=== PATIENT | female | born 1980 | race Caucasian/White ===

== ENCOUNTER 2021-10-25 08:39 | Outpatient (CLI) | payer OTHER, SELFPAY ==
--- NOTE | 2021-10-25 08:52 | MM_ITS ---
WS: [id number] BILATERAL DIGITAL SCREENING MAMMOGRAPHY WITH CAD CLINICAL INFORMATION: SCREENING HISTORY: Screening mammogram. No current complaints. COMPARISON: None. TECHNIQUE: Bilateral CC and MLO views. FINDINGS: Scattered fibroglandular densities bilaterally. No suspicious focal mass, asymmetry, calcifications, or architectural distortion. No evidence of malignancy. MM/[id number] IMPRESSION: BI-RADS: 1-Negative FOLLOW UP: 1 Year Follow-up Recommend return to annual screening mammography.
== END 2021-10-25 08:40 | disposition home or self-care (01) ==
LOC: RADSHAW 08:47
PROVIDERS: PCP Family Medicine; Visit Provider Family Medicine
DX: Z12.31 Encounter for screening mammogram for malignant neoplasm of breast (principal)
CPT/HCPCS: 77067

== ENCOUNTER 2022-12-07 09:47 | Outpatient (CLI) | payer OTHER, SELFPAY ==
--- NOTE | 2022-12-07 09:57 | MM_ITS ---
WS: [id number] SCREENING DIGITAL BREAST TOMOSYNTHESIS MAMMOGRAM WITH CAD HISTORY: SCREENING COMPARISON: 10/25/2021 Bilateral CC and MLO with tomosynthesis and synthetic mammography submitted. Computer aided detection analyzed. Breast composition: The breasts are heterogeneously dense, which may obscure small masses. New area o f increasing asymmetry in the posterior LEFT breast at 12:00. This will need to be further evaluated. The remaining breasts are negative. No distortion or calcification. MM/[place] [id number] IMPRESSION: BI-RADS: 0-Incomplete: Need additional imaging evaluation FOLLOW UP: Need Additional Imaging LEFT breast: Spot compression views (CC and MLO). True ML. Ultrasound to follow if abnormality persists.
== END 2022-12-07 09:48 | disposition home or self-care (01) ==
PROVIDERS: PCP Family Medicine; Visit Provider Family Medicine
DX: Z12.31 Encounter for screening mammogram for malignant neoplasm of breast (principal)
CPT/HCPCS: 77063; 77067

== ENCOUNTER 2023-01-03 12:39 | Outpatient (CLI) | payer OTHER, SELFPAY ==
--- NOTE | 2023-01-03 13:17 | MM_ITS ---
WS: [id number] ADDITIONAL VIEWS LEFT MAMMOGRAM with tomosynthesis. LEFT BREAST ULTRASOUND HISTORY: ABNORMAL MAMMO COMPARISON: 12/07/2022, 10/25/2021 LEFT MAMMOGRAM: Spot compression views and true ML with tomosynthesis and sympathetic mammography. Ill-defined asymmetries in the posterior LEFT breast near 12:00 axis extending just medial and latera l to the nipple line. Does appear improved on the spot compression views. Due to the increased densit y ultrasound will also be performed. LEFT BREAST ULTRASOUND 2-D and color Doppler imaging submitted. Ultrasound is directed to the superior LEFT breast centered at 12:00 but extending medial and lateral . There is dense fibroglandular tissue but no mass or distortion. MM/[id number] IMPRESSION: BI-RADS: 2-Benign FOLLOW UP: 1 Year Follow-up Return to annual screening mammography. Dense fibroglandular tissue but no mass in the LEFT breast in the area of concern.
== END 2023-01-03 12:40 | disposition home or self-care (01) ==
PROVIDERS: PCP Family Medicine; Visit Provider Family Medicine
DX: R92.8 Other abnormal and inconclusive findings on diagnostic imaging of breast (principal)
CPT/HCPCS: 76642; 77061; G0279

== ENCOUNTER 2023-05-30 11:28 | Outpatient (CLI) | payer OTHER, SELFPAY ==
--- NOTE | 2023-05-30 11:58 | MR_ITS ---
WS: [id number] MRI LEFT HUMERUS WITH AND WITHOUT CONTRAST. COMPARISON: None Multiplanar, multisequence imaging is performed with and without contrast. MultiHance 20 mL IV History: Mid humeral pain and mass. Normal appearance of the soft tissues and osseous structures of the humerus. Marker is placed over th e mid humerus. No underlying mass or abnormal enhancement is identified. There is no enhancing mass. Muscles are normal caliber. No destructive bone lesions. IMPRESSION: Normal MRI LEFT humerus.
[2023-05-30] MEDS: gadobenate dimeglumine 20 mL vial IV (12:47)
== END 2023-05-30 11:29 | disposition home or self-care (01) ==
PROVIDERS: PCP Family Medicine; Visit Provider Family Medicine
DX: M79.602 Pain in left arm (principal); R22.32 Localized swelling, mass and lump, left upper limb
CPT/HCPCS: 73220; A9577

== ENCOUNTER 2024-03-06 10:02 | Outpatient (CLI) | payer OTHER, SELFPAY ==
--- NOTE | 2024-03-06 10:09 | MM_ITS ---
WS: [email or web address] BILATERAL SCREENING DIGITAL TOMOSYNTHESIS MAMMOGRAM WITH CAD HISTORY: SCREENING COMPARISON: 12/07/2022, 01/03/2023, 10/25/2021 Bilateral CC and MLO views with tomosynthesis and synthetic mammography submitted. Computer aided det ection analyzed. Breast composition: The breasts are heterogeneously dense, which may obscure small masses. No suspici ous masses, microcalcifications or architectural distortion. Reidentified is asymmetry in the central posterior LEFT breast which was imaged additionally on 01/03/2023 with no underlying abnormality iden tified. No suspicious calcifications. MM/[place] [id number] IMPRESSION: BI-RADS: 2-Benign FOLLOW UP: 1 Year Follow-up
== END 2024-03-06 10:03 | disposition home or self-care (01) ==
LOC: RAD 10:03
PROVIDERS: PCP Family Medicine; Visit Provider Family Medicine
DX: R92.333 Mammographic heterogeneous density, bilateral breasts (principal)
CPT/HCPCS: 77063; 77067

== ENCOUNTER 2025-03-10 08:28 | Outpatient (CLI) | payer OTHER, SELFPAY ==
--- NOTE | 2025-03-10 08:32 | MM_ITS ---
WS: [id number] BILATERAL SCREENING DIGITAL TOMOSYNTHESIS MAMMOGRAM WITH CAD HISTORY: SCREENING COMPARISON: 12/07/2022, 01/03/2023, 03/06/2024 and 10/25/2021 Bilateral CC and MLO views with tomosynthesis and synthetic mammography submitted. Computer aided detection analyzed. Breast composition: The breasts are heterogeneously dense, which may obscure small masses. No suspicious masses, microcalcifications or architectural distortion. Focal asymmetry is reidentified in the central posterior LEFT breast which is stable. MM/MM [facility] tomosynthesis [id number] IMPRESSION: BI-RADS: 2 - Benign FOLLOW UP: 1 Year Follow-up
== END 2025-03-10 08:29 | disposition home or self-care (01) ==
PROVIDERS: PCP Family Medicine; Visit Provider Family Medicine
DX: Z12.31 Encounter for screening mammogram for malignant neoplasm of breast (principal); R92.333 Mammographic heterogeneous density, bilateral breasts; N64.89 Other specified disorders of breast
CPT/HCPCS: 77063; 77067

== ENCOUNTER → 2025-06-21 10:07 | Outpatient (BNVA) | payer OTHER, SELFPAY | PROVIDERS: PCP Family Medicine; Visit Provider Registered Nurse Neonatal Intensive Care | DX: R30.0 Dysuria (principal) | CPT/HCPCS: 81000 ==